=== PATIENT | female | born 1985 | race Caucasian/White ===

== ENCOUNTER 2019-02-27 21:08 | Outpatient (CLI) | payer OTHER | END 2019-02-28 10:44 | disposition home or self-care (01) | LOC: OBS/DEL 21:08 | DX: O35.8XX0 Maternal care for other (suspected) fetal abnormality and damage, not applicable or unspecified (principal); Z34.83 Encounter for supervision of other normal pregnancy, third trimester; O21.8 Other vomiting complicating pregnancy ==